=== PATIENT | female | born 1970 | race Caucasian/White ===

== ENCOUNTER 2024-12-08 11:09 | Inpatient (IN) | payer MEDICAID, SELFPAY ==
[2024-12-08 11:10] VITALS: BMI 27.4
[2024-12-08 11:23] VITALS: BP 171/96; PULSE 91; RESP 18; TEMP 36.6; O2SAT 97; BMI 29.5
--- NOTE | 2024-12-08 11:33 | EDRME_ITS ---
Rapid Medical Screening Exam COUNT INCLUDES THE [facility] Arrival date/time: 12/08/24 11:09 54-year-old female with no known medical history presents to the emergency room with a chief complaint of 7 out of 10 generalized abdominal pain and no bowel movement x 3 days. I have greeted and performed a focused initial assessment of this patient. A comprehensive ED assessment and evaluation of the patient, analysis of all test results, and completion of the medical decision making process will be conducted by additional ED providers. Chief Complaint: Abdominal Pain Vital signs: Vital Signs Temperature 97.9 F 12/08/24 11:23 Pulse Rate 91 12/08/24 11:23 Respiratory Rate 18 12/08/24 11:23 Blood Pressure 171/96 H 12/08/24 11:23 Pulse Oximetry (%) 97 12/08/24 11:23 Oxygen Delivery Method Room Air 12/08/24 11:23 Vital signs reviewed by provider: Yes
--- NOTE | 2024-12-08 11:33 | XR_ITS ---
Examination: Abdomen AP single view Technique: AP portable supine abdomen, single view Exam date and time: December 08, 2024 1147 hours INDICATIONS: Abdominal pain no bowel movement 3 days. FINDINGS: Moderate stool throughout the colon Multiple calcifications in the right abdomen which may be in the gallbladder No bowel obstruction No free air IMPRESSION: Recommend hepatobiliary sonography follow-up to confirm cholelithiasis
[2024-12-08 12:28] LABS: Basophils % (Auto) 0 % (0-2.5); Eosinophils % (Auto) 0 % (0-10); Hemoglobin 13.8 g/dL (12.0-16.0); Immature Granulocytes % (Auto) 0 % (0-0); Immature Granulocytes Auto 0.04 Thou/mm3 (0.00-0.00); Lymphocytes # (Auto) 1.5 Thou/mm3 (1.0-4.8); Lymphocytes % (Auto) 9 % (10-50); Mean Corpuscular HGB Conc 33.7 g/dl (31.0-37.0); Mean Corpuscular Hemoglobin 28.5 pg (25.0-35.0); Mean Corpuscular Volume 85 fL (80-100); Monocytes # (Auto) 0.9 Thou/mm3 (0.0-0.8); Monocytes % (Auto) 5 % (0-12); Neutrophils # (Auto) 13.3 Thou/mm3 (1.8-7.7); Neutrophils % (Auto) 85 % (37-80); Nucleated Red Blood Cell % 0 /100 WBC (0); Platelet Count 469 Thou/mm3 (140-440); RDW Standard Deviation 41.4 fL (36.4-46.3); Red Blood Count 4.84 Miln/mm3 (4.00-5.20); White Blood Count 15.7 Thou/mm3 (3.6-11.0)
[2024-12-08 12:52] LABS: Collection Type, Urine Clean Catch
[2024-12-08 13:11] LABS: HCG Qualitative,Urine Negative
[2024-12-08 13:18] LABS: Bacteria,Urine Rare; Bilirubin,Urine Negative (Negative); Blood,Urine 1+ (Negative); Clarity,Urine Clear (Clear/Hazy); Color,Urine Yellow (Lt Yel-Yel); Glucose, Urine Negative (Negative); Ketones,Urine 2+ (Negative); Leukocyte Esterase,Urine Negative (Negative); Nitrite,Urine Negative (Negative); Protein,Urine 1+ (Neg - Trace); RBC,Urine 10 /hpf (0-3); Specific Gravity,Urine 1.032 (1.001-1.035); Squamous Epithelial Cell,Urine 2 /hpf (0-5); Urobilinogen,Urine Negative mg/dL (0.0-1.0); WBC,Urine < 1 /hpf (0-5)
[2024-12-08 13:30] LABS: Alanine Aminotransferase < 7 U/L (10-49); Albumin, Serum 4.6 gm/dL (3.5-5.0); Albumin/Globulin Ratio 1.3 (1.2-2.2); Alkaline Phosphatase 72 U/L (46-116); Anion Gap 11 (7-16); Aspartate Amino Transferase 16 U/L (0-34); BUN/Creatinine Ratio 18 Ratio (12-20); Bilirubin,Total 0.9 mg/dL (0.3-1.2); Blood Urea Nitrogen 11 mg/dL (9-23); Calcium 9.2 mg/dL (8.3-10.6); Calcium (Corrected) 9.2 mg/dL (8.5-10.1); Carbon Dioxide 26.4 mMol/L (20.0-31.0); Chloride 100 mMol/L (98-107); Creatinine (Component) 0.6 mg/dL (0.6-1.3); Estimated Creatinine Clearance 115.1 mL/min (>60); Globulin 3.6 gm/dL (2.3-3.5); Glucose 120 mg/dL (74-106); Lipase 43 U/L (12-53); Osmolality,Calculated 274 (275-295); Potassium 4.3 mMol/L (3.4-5.1); Sodium 137 mMol/L (136-145); Total Protein 8.2 gm/dL (5.7-8.2); eGFR > 60 See Note
--- NOTE | 2024-12-08 14:58 | XR_ITS ---
Examination: Abdomen sonogram, Limited Date and time of exam: December 08, 2024 1511 hours INDICATIONS: Abdominal pain and constipation beginning 3 days ago Technique: Real-time cooper scale transabdominal sonographic images of the upper abdomen obtained. Findings: Multiple gallstones, gallbladder wall is thickened 0.8 cm Common bile duct 0.5 cm Pancreatic head 2.4 cm Difference 17.1 cm fatty infiltration Normal hepatopedal portal venous flow Patent IVC IMPRESSION: Cholelithiasis Suspicious for cholecystitis, suggest HIDA scan or MRCP follow-up
[2024-12-08] MEDS: HYDROcodone/APAP 5/325 TABLET 1 TAB PO (15:06)
[2024-12-08 17:00] VITALS: BP 154/90; PULSE 100; RESP 20; TEMP 36.4; O2SAT 99
--- NOTE | 2024-12-08 20:06 | EDNOTE_ITS ---
ED General RME/HPI General Chief complaint: Abdominal Pain Stated complaint: CONSTIPATION X3 DAYS Time Seen by Provider: 12/08/24 19:53 Arrival date/time: 12/08/24 11:09 CC: Epigastric right upper quadrant abdominal pain HPI onset for 4 days with progressive increase in severity. Patient also states no longer having a bowel movement for the past 3 days in spite of the fact that she is regular for years. The patient takes no medicines no allergies patient had tried OTC medications without relief. Immediate nausea intermittent vomiting after eating. No prior history of similar events. Patient is somewhat stoic RME / HPI RME / HPI narrative: 12/08/24 11:09 54-year-old female with no known medical history presents to the emergency room with a chief complaint of 7 out of 10 generalized abdominal pain and no bowel movement x 3 days. I have greeted and performed a focused initial assessment of this patient. A comprehensive ED assessment and evaluation of the patient, analysis of all test results, and completion of the medical decision making process will be conducted by additional ED providers. Related Data Previous Rx's ?Medication ?Instructions ?Recorded Hydrocodone/Acetaminophen * (NORCO 1 tab PO Q4H PRN PA IN #20 tabs 11/14/14 5/325 *) Allergies Allergy/AdvReac Type Severity Reaction Status Date / Time Penicillins Allergy Unknown DIFF Verified 12/08/24 11:13 BREATHING Past Medical History Social History SMOKING STATUS: Never smoker ED Exam Narrative Physical exam: [General: In moderate discomfort but not in any acute distress Head normocephalic HEENT: Eyes pupils are PERRLA EOMs are intact within acceptable limits Neck is supple nontender Chest equal chest rise nontender to palpation Respiratory: Clear to auscultation no wheezes crackles or rubs CV: Rate rhythm is regular no murmurs rubs or clicks Abdomen: Exquisite tenderness to epigastrium and right upper quadrant with reflexive guarding and rebound tenderness. Minimal left upper quadrant tender ness. No lower abdomen tenderness with palpation. Back: No CVA tenderness no spinous process tenderness from cervical spine thoracic and lumbar spine Skin: Intact no petechiae rash induration ulceration or crepitus Extremities: Moving all extremity against resistance cap refill less than 2 seconds neurosensory intact Neuro: Awake alert oriented x3 Glascow coma 15 no focal deficits] Course Course Course Narrative: Patient's case discussed at length with Dr. Jeronimo I do believe this patient has acute cholecystitis given her clinical presentation, leukocytosis and ultrasound. Dr. Jeronimo agrees to accept the patient for admission for Melisa cystectomy in the morning. Quality Measures none Orders Category Date Time Status COVID-19 Screening Questionnaire NOW Care 12/08/24 20:19 Completed Decision to Admit X1 Care 12/08/24 20:19 Completed EKG (ED ONLY) *Do not use* NOW Care 12/08/24 20:19 Completed NPO after Midnight ONCE Care 12/08/24 20:03 Active Diet Clear Liquid Diet 12/08/24 Dinner Active Diet NPO after Midnight Diet 12/09/24 00:01 Active EKG (ED Only) Stat Exams 12/08/24 20:19 Draft US gall bladder Stat Exams 12/08/24 14:58 Completed XR abdomen 1V Stat Exams 12/08/24 11:33 Completed XR chest 1V Stat Exams 12/08/24 20:19 Completed CBC Stat Lab 12/08/24 12:14 Completed CMP [Comprehensive Metabolic Panel] Stat Lab 12/08/24 12:14 Completed HCG Qualitative,Urine Stat Lab 12/08/24 12:30 Completed Lipase Stat Lab 12/08/24 12:14 Completed UA [Urinalysis] Stat Lab 12/08/24 12:30 Completed Urine Culture Stat Lab 12/08/24 12:30 Received Acetaminophen Tab [Tylenol Tab] Med 12/08/24 20:31 Active 650 mg PO Q6H PRN HYDROcodone*/APAP 5/325 [[place] 5/325] Med 12/08/24 14:57 Discontinued 1 tab PO X1 ONE Ketorolac Inj [Toradol Inj] Med 12/08/24 20:31 Active 15 mg IVP Q6H PRN Morphine Inj Med 12/08/24 20:31 Active 4 mg IVP Q4H PRN Morphine Inj Med 12/08/24 20:02 Discontinued 4 mg IVP X1 ONE Ondansetron Inj [Zofran Inj] Med 12/08/24 20:02 Discontinued 4 mg IV X1 ONE Sodium Chloride 0.9% 1000 ml [Ns] 1,000 ml Med 12/08/24 20:45 Active IV 125 mls/hr Sodium Chloride 0.9% 1000 ml [Ns] 1,000 ml Med 12/08/24 20:02 Discontinued IV 80 mls/hr Sodium Chloride 0.9% 1000 ml [Ns] 1,000 ml Med 12/08/24 20:02 Discontinued IV 999 mls/hr ceFAZolin/D5W 2 GM IV [Ancef 2gm Ivpb] Med 12/08/24 20:05 Discontinued 2 gm in 100 ml IV X1 Vital Signs Vital signs: Vital Signs Temperature 97.9 F 12/08/24 11:23 Pulse Rate 91 12/08/24 11:23 Respiratory Rate 18 12/08/24 11:23 Blood Pressure 171/96 H 12/08/24 11:23 Pulse Oximetry (%) 97 12/08/24 11:23 Oxygen Delivery Method Room Air 12/08/24 11:23 Discharge Plan Plan Patient Disposition: Admit Acute Care w/in Hospital Patient condition on transfer: Stable Problem List Clinical Impression: Acute cholecystitis, Right upper quadrant abdominal pain PA/OIL FIELD TESTER Supervising Physician PA/OIL FIELD TESTER Supervising Physician: Gordon Arshad ENP [facility] Clinical Information Provided by: patient Medical Records reviewed [facility] Meds/Rx considered, not ordered None Labs/Rad/Tests considered, not ordered None Chronic Illness/Social Conditions which may negatively complicate care or outcome(s)-explain: None or not applicable EKG EKG not done Labs Labs: interpreted by wa Lab(s) Interpretation(s): CBC shows a leukocytosis of 15.7 H&H of 13.3 and 41.0 platelets of 469 Chemistry shows no significant electrolyte imbalances glucose of 120 no renal impairment no transaminitis or T. bili elevation. Lipase is 43 Urine shows 1+ protein 2+ ketones 1+ blood 10 RBCs no other acute finding is negative Medication Administration(s) Medication Administration History Acetaminophen (Acetaminophen 325 Mg Tablet) 650 mg PO Q6H PRN PRN Reason: PAIN SCALE 1-3 (mild Stop: 01/07/25 20:30 Sodium Chloride (Ns) 1,000 mls @ 125 mls/hr IV .Q8H YUDELKA Stop: 01/07/25 20:44 Last Admin: 12/08/24 21:34 Dose: 125 mls/hr Documented By: MM Cefazolin Sodium 2 gm/ Sodium (Chloride) 100 mls @ 200 mls/hr IV X1 ONE Stop: 12/09/24 06:29 Ketorolac Tromethamine (Ketorolac Inj 30 Mg/Ml Vial) 15 mg IVP Q6H PRN PRN Reason: PAIN SCALE 4-6 (Moderate Stop: 12/13/24 20:30 Morphine Sulfate (Morphine Sulf Inj 10 Mg/Ml Vial) 4 mg IVP Q4H PRN PRN Reason: PAIN SCALE 7-10 (Severe Stop: 12/13/24 20:30 Discontinued Medications Hydrocodone Bitart/Acetaminophen (Hydrocodone/Apap 5/325 Tablet) 1 tab PO X1 ONE Stop: 12/08/24 14:58 Last Admin: 12/08/24 15:06 Dose: 1 tab Documented By: JASE Sodium Chloride (Ns) 1,000 mls @ 999 mls/hr IV .Q1H1M ONE Stop: 12/08/24 21:02 Last Admin: 12/08/24 20:33 Dose: 999 mls/hr Documented By: JASE Sodium Chloride (Ns) 1,000 mls @ 80 mls/hr IV .[id number] YUDELKA Stop: 01/07/25 20:01 Cefazolin Sodium (Ancef 2gm Ivpb) 2 gm in 100 mls @ 100 mls/hr IV X1 ONE Stop: 12/08/24 21:04 Last Admin: 12/08/24 21:31 Dose: 100 mls/hr Documented By: MALATHI Morphine Sulfate (Morphine Sulf Inj 10 Mg/Ml Vial) 4 mg IVP X1 ONE Stop: 12/08/24 20:03 Last Admin: 12/08/24 21:08 Dose: 4 mg Documented By: MALATHI Ondansetron HCl (Ondansetron Inj 2 Mg/Ml Inj 2 Ml) 4 mg IV X1 ONE; Protocol Stop: 12/08/24 20:03 Last Admin: 12/08/24 21:09 Dose: 4 mg Documented By: MALATHI
--- NOTE | 2024-12-08 20:19 | EKG_ITS ---
[facility] Test Date: 2024-12-08 Pat Name: CAROLYN DIAZ Department: Room: - Gender: Female Gastroenterology Nurse: : 1970 Requested By: Gordon Stark Order Number: [id number] Reading MD: Gordon Stark Measurements Intervals [place] Rate: 87 P: 25 ND: 128 QRS: 20 QRSD: 92 T: 10 QT: 355 QTc: 429 Interpretive Statements SINUS RHYTHM NONSPECIFIC T-WAVE ABNORMALITY No previous ECG available for comparison /store/S0/[id number]/[id number].pdf
--- NOTE | 2024-12-08 20:19 | XR_ITS ---
Examination: AP chest single view TECHNIQUE: AP portable upright chest single view Date and time: December 08, 2024 2113 hours INDICATIONS: Generalized abdominal pain with no bowel movement 3 days with chest pain FINDINGS: Normal heart size Minor subsegmental atelectasis left base 3 mm pulmonary nodule right lower lobe No lobar pneumonia or pulmonary edema Intact osseous structures IMPRESSION: Minor subsegmental atelectasis left base No pneumonia or pulmonary edema Recommend three-month follow-up PA chest to document stability of small pulmonary nodule right lower lung zone
[2024-12-08] MEDS: SODIUM CHLORIDE 0.9% 1000 ML 1,000 ML 999 ML IV (20:33)
[2024-12-08] MEDS: MORPHINE SULF INJ 10 MG/ML VIAL 4 MG IVP (21:08)
[2024-12-08] MEDS: ONDANSETRON INJ 2 MG/ML INJ 2 ML 4 MG IV (21:09)
[2024-12-08 21:19] VITALS: BP 145/91; PULSE 89; RESP 24; O2SAT 97
[2024-12-08] MEDS: ceFAZolin/D5W 2 GM IV 2 GM/100 ML BAG IV (21:31)
[2024-12-08] MEDS: SODIUM CHLORIDE 0.9% 1000 ML 1,000 ML 125 ML IV (21:34)
[2024-12-08 23:01] VITALS: BMI 30.6
[2024-12-08] MEDS: KETOROLAC INJ 30 MG/ML VIAL 15 MG IVP (23:36)
[2024-12-09] VITALS (12 sets, daily range): BP systolic 97–140; BP diastolic 59–84; PULSE 74–96; RESP 16–96; TEMP 35.9–36.6; O2SAT 92–100
[2024-12-09] MEDS: KETOROLAC INJ 30 MG/ML VIAL 15 MG IVP (05:54)
[2024-12-09] MEDS: ceFAZolin/D5W 2 GM IV 2 GM/100 ML BAG IV (05:55)
[2024-12-09] MEDS: SODIUM CHLORIDE 0.9% 1000 ML 1,000 ML 125 ML IV (05:55)
--- NOTE | 2024-12-09 07:35 | PD.SURHP ---
HPI Date of Admission 12/08/24 20:32 HPI 54F presenting with epigastric pain. Patient reports for last 3 days she has had severe and constant epigastric pain, worsened with eating, associated with nausea/vomiting. Patient was also constipated during this time so she tried multiple stool softeners but because her symptoms worsen she presented to ER. Workup is consistent with acute cholecystitis. Patient has no history of similar symptoms PMH: None PSHx: Appendectomy age 4 Meds: No antiplt or anticoagulation Allergies: PCN (hives) Social hx: Nonsmoker Review of Systems Review of Systems ROS Unobtainable: All systems reviewed & no additional complaints except as documented Meds Home Medications and Allergies Allergies Allergy/AdvReac Type Severity Reaction Status Date / Time Penicillins Allergy Unknown DIFF Verified 12/08/24 11:13 BREATHING Exam Vital Signs Temp Pulse Resp BP Pulse Ox O2 Del Method 97.9 F 83 18 97/59 L 97 Room Air 12/09/24 04:00 12/09/24 04:00 12/09/24 04:00 12/09/24 04:00 12/09/24 04:00 12/09/24 04:00 Constitutional Constitutional: no acute distress Routine Respiratory Exam Respiratory: Absent no resp distress Routine Abdominal Exam Abdominal: Present soft and tenderness (moderate RUQ tenderness); Absent distended, rebound or guarding Results Results: Laboratory Laboratory results: results reviewed Results: Imaging US - abdomen: report reviewed Assessment & Plan Plan 54F presenting with multiple days of severe epigastric pain, workup consistent with acute cholecystitis. I explained benefits/risks of surgery including need for conversion to open, bleeding, infection, injury to nearby structures requiring further procedures and/or a major biliary reconstruction which would need to be done at a tertiary center, as well as hernia and postoperative diarrhea. All questions were answered and patient agrees to proceed OR today for laparoscopic cholecystectomy, possible open Quality Measures Quality Measures none
--- NOTE | 2024-12-09 11:14 | PC.SS ---
Addendum entered by RUBÉN Mejia 12/09/24 11:28: Attempted contact with patient's spouse, Demarco to complete initial assessment. He was unavailable and voicemail was provided. Original Note: SS update: patient out of room for surgery with Dr. Jeronimo.
--- NOTE | 2024-12-09 12:16 | SUR.PHASEI ---
pt received from OR in recovery bay 1. pt asleep but responds to voice, breathing unlabored on nc4l. v/s stable. pt dressing to abd dermabond x4 cdi. report received from Dr. Jimmy Rodriguez and eHma MURCIA.
--- NOTE | 2024-12-09 12:16 | PC.NURSE ---
Dr. Jeronimo at bedside per MD gomez pt once diet is adv and tolerated, and stable after sx completed today.
--- NOTE | 2024-12-09 12:23 | PD.SUROPNT ---
Date of Procedure 12/09/24 Pre Op Diagnosis Acute cholecystitis Post Op Diagnosis Same Procedure Laparoscopic cholecystectomy Findings Acutely inflamed, edematous gallbladder Procedure Description After discussion of risks and benefits, patient was brought to the operating room, SCDs were placed and general anesthesia was induced. She received preoperative antibiotics and was prepped and draped in the usual sterile fashion. After timeout a supraumbilical incision was made with a #15 blade and the skin was elevated with towel clamps. A Veress needle was placed through the incision and proper positioning was confirmed with a drop test. The abdomen was insufflated to 15 mmHg at which point the Veress was exchanged for a 5 mm camera using a Visiport technique. There were no signs of injury from the point of entry. 3 additional ports were placed under direct vision, one 12 mm at the epigastrium, one 5 mm right subcostal and one 5 mm right anterior axillary line. Patient was placed in reverse Trendelenburg. The gallbladder was noted to be quite firm and was first aspirated with return of approximately 60 cc of bile. At that point the fundus of the gallbladder was grasped retracted cephalad and the infundibulum was grasped and retracted laterally. Ultimately the critical view of safety was achieved with blunt dissection and the cystic duct and cystic artery were clipped and transected in the usual fashion. The gallbladder was removed from the gallbladder bed using electrocautery and removed in an Endo Catch bag via the epigastric port. The gallbladder bed was examined and there was minimal oozing which was controlled with Surgicel powder. The epigastric fascia was closed with 0 Vicryl suture using a Devyn-Anika. Pneumoperitoneum was released and ports were removed under direct vision. Incisions were irrigated and infiltrated with half percent Marcaine for a total of 30 cc. Incisions were closed with 4-0 Monocryl and reinforced with Dermabond. Patient was extubated and brought to PACU in stable condition Pathology / specimen Other (Gallbladder) Estimated Blood Loss 50 Surgeon Ileana Jeronimo MD Surgical Staff Operation Date: 12/09/24 10:30 Case Staff Anesthesiologist: Ernesto Marquez RNtax services professional: Lashaun Paredes
--- NOTE | 2024-12-09 12:28 | ESDS_ITS ---
Planned Discharge Date 12/09/24 DS: Providers Provider Date of admission: 12/08/24 20:32 Primary care physician: Physician No Primary/Family Admitting Provider: Ileana Jeronimo MD Attending Provider on Admission: Ileana Jeronimo MD Attending Provider on DC: Ileana Jeronimo MD Discharging Provider: Ileana Jeronimo MD Diagnosis Discharge Diagnosis (1) Acute cholecystitis: Status: Acute Problem List Completed Was Problem List Reviewed/Reconciled?: Yes Exam Vital Signs Temp Pulse Resp BP Pulse Ox O2 Del Method 97.1 F 86 18 109/77 95 Room Air 12/09/24 08:00 12/09/24 08:00 12/09/24 08:00 12/09/24 08:00 12/09/24 08:00 12/09/24 08:00 Discharge Plan Plan Patient Disposition: HOME (Self Care) Patient condition on transfer: Stable Prescriptions/Referrals Prescriptions/Med Rec: New oxycodone-acetaminophen [Percocet] 5-325 mg tablet 1 tab PO Q6H MDD 6 tabs PRN (Reason: pain) Qty: 10 0RF Rx Instructions: Pt had gallbladder surgery 12/09/24 No Action Hydrocodone/Acetaminophen * (NORCO 5/325 *) 1 TAB tablet 1 tab PO Q4H PRN (Reason: PAIN) Qty: 20 0RF Rx Instructions: FOR PAIN Referrals: Ileana Jeronimo MD [Physician] - (You will receive a phone call to confirm a follow-up appointment with me in 2 weeks) No Primary/Family,Physician [Primary Care Provider] - Patient/Caregiver Discharge Instructions Other Discharge Activity Instructions:: You may resume showering in 2 days, on 12/11 Otherwise keep incisions clean and dry Your incisions have skin glue on them which will fall off on its own and does not need to be replaced Your stitches will not need to be removed If you develop worsening pain, nausea/vomiting, fever or signs of jaundice please seek care in ER Education Materials: Cholecystectomy Laparoscopic Dc, Preventing Surgical Site Infections Print Language: Chinese Stand Alone Forms: Gem Award Info., Patient Portal Info Letter Discharge Order Discharge Orders: Discharge (Routine); Ordered 12/09/24 Ordered By: Ileana Jeronimo Results Results: Laboratory Laboratory results: results reviewed Results: Imaging US - abdomen: report reviewed Procedures Procedure Date 12/09/24 Procedures Laparoscopic cholecystectomy
[2024-12-09] MEDS: fentaNYL CIT INJ 50 mCg/ML AMP 2ML IVP (12:32)
--- NOTE | 2024-12-09 12:38 | SUR.PHASEI ---
pt able to tolerate oral fluids without difficulty swallowing or nausea/vomiting.
[2024-12-09] MEDS: HYDROmorphone INJ 2 MG/ML VIAL 0.5 MG IVP (12:47)
--- NOTE | 2024-12-09 13:12 | PC.SS ---
Initial assessment: Patient is a 54 year old female. Information obtained from spouseDemarco listed on facesheet and emergency contact. Patient resides at home with spouseDemarco. Confirmed demographic information. Patient does not require DME, able to ambulate independently. Patient does not follow with PCP. Patient to return home upon d/c. Spouse able to transport. No needs identified at this time. D/c plan: Home Next of kin: spouseDemarco
--- NOTE | 2024-12-09 13:15 | SUR.PHASEI ---
pt awake and alert, breathing unlabored on room air. v/s stable. pt dressing to abd dermabond x4 cdi. report called to Kaela MURCIA. pt will be transferred to room at this time.
[2024-12-09] MEDS: MORPHINE SULF INJ 10 MG/ML VIAL 4 MG IVP (13:57)
[2024-12-09] MEDS: oxyCODONE/APAP 5/325 TABLET 1 TAB PO (16:41)
--- NOTE | 2024-12-09 17:33 | PC.NURSE ---
Discharge done at bedside pt tolerating meals. Per MD schaeffer pt ok to dc. Incisions assessed no s/s of infection.
== END 2024-12-09 18:16 | disposition home or self-care (01) | DRG 263 ==
LOC: SERX 20:18 → S3NX 12-09 06:04 → SERHOLD 12-09 06:04
PROVIDERS: Nurse Practitioner Family; Admitting Provider Surgery; Emergency Provider Emergency Medicine; Visit Provider Surgery
PROC: 0FT44ZZ Resection of Gallbladder, Percutaneous Endoscopic Approach (ICD-10-PCS; CPT 47562; principal; 2024-12-09 10:30)
DX: K80.00 Calculus of gallbladder with acute cholecystitis without obstruction (principal); K82.8 Other specified diseases of gallbladder; K59.00 Constipation, unspecified; Z90.49 Acquired absence of other specified parts of digestive tract
CPT/HCPCS: 36415; 71045; 74018; 76705; 80053; 81001; 81025; 83690; 85025; 87086; 93005; 96374; 96375; 99285; A4217; A4649; J0131; J0689; J0690; J1100; J1171; J1885; J2250; J2270; J2405; J2704; J2765; J3010; J3490; J7030; A9270; J1596

== ENCOUNTER 2024-12-22 14:27 | Outpatient (AMB) | payer MEDICAID, SELFPAY ==
[2024-12-22 14:38] VITALS: BP 145/86; PULSE 85; RESP 18; TEMP 36.9; O2SAT 97; BMI 29.5
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
== END 2024-12-22 14:56 | disposition home or self-care (01) ==
LOC: HODSRG 14:27
PROVIDERS: Supervising Provider Surgery; Visit Provider Surgery
DX: Z48.815 Encounter for surgical aftercare following surgery on the digestive system (principal)
CPT/HCPCS: 99213; G0463